=== PATIENT | female | born 1960 | race Caucasian/White ===

== ENCOUNTER 2019-09-18 16:03 | Inpatient (IN) | payer MEDICAID ==
[~2019-09-18] VITALS: Ht 144.8 cm; Wt 38.1 kg
--- NOTE | 2019-09-18 16:14 | NUR ---
BIB RA [address] "Acting bizzarre/Restless/altered" BS-145. to ER bed 8, hooked to monitor, placed additional padding at bedrails for safety. AAO x 2, Patient noted to have erratic spontaneous movement and patient states this is the first time it happened. kept safe and comfortable. Dr Guallpa at bedside
--- NOTE | 2019-09-18 16:36 | NUR ---
NOT ABLE TO BRING PATIENT TO CT SCAN BEC OF SPONTANEOUS MOVEMENT, MD AWARE
[2019-09-18 16:39] LABS: BASOPHILS % (AUTO) 0.3 % (0.0-2.0); EOSINOPHILS % (AUTO) 0.1 % (0.0-6.0); HEMATOCRIT 38 % (33-45); HEMOGLOBIN 12.4 g/dL (11.5-14.8); LYMPHOCYTES # (AUTO) 1.1 /CMM (0.8-4.8); LYMPHOCYTES % (AUTO) 14.3 % (20.0-44.0); MEAN CORPUSCULAR HGB CONC 33 g/dl (31.0-36.0); MEAN CORPUSCULAR VOLUME 91 fL (82-100); MONOCYTES # (AUTO) 0.6 /CMM (0.1-1.30); MONOCYTES % (AUTO) 7.1 % (2.0-12.0); NEUTROPHILS # (AUTO) 6.1 /CMM (1.8-8.9); NEUTROPHILS % (AUTO) 78.2 % (43.0-81.0); PLATELET COUNT (AUTO) 441 /CMM (150-450); RED BLOOD CELL COUNT(AUTO) 4.14 MIL/uL (4.0-5.2); WHITE BLOOD COUNT (AUTO) 7.8 K/uL (4.3-11.0)
[2019-09-18 16:47] LABS: CARBON DIOXIDE 26 mmol/L (21-32); CHLORIDE 101 mmol/L (98-107); CREATININE 1.2 mg/dL (0.6-1.3); GLUCOSE 134 mg/dL (74-106); POTASSIUM 3.2 mmol/L (3.5-5.1); SODIUM SERUM 140 mmol/L (136-145); UREA NITROGEN, BLOOD 34 mg/dL (7-18)
[2019-09-18 16:54] LABS: ALANINE AMINOTRANSFERASE 14 U/L (12-78); ALBUMIN 4.3 g/dL (3.4-5.0); ALKALINE PHOSPHATASE 76 U/L (46-116); ASPARTATE AMINOTRANSFERASE 16 U/L (15-37); BILIRUBIN,DIRECT 0.2 mg/dL (0.0-0.2); BILIRUBIN,TOTAL 0.8 mg/dL (0.2-1.0); TOTAL PROTEIN, SERUM 8.2 g/dL (6.4-8.2)
[2019-09-18 16:55] LABS: ACETAMINOPHEN < 2 ug/ml (10-30); SALICYLATE 0.2 mg/dL (2.8-20.0)
[2019-09-18 17:12] LABS: SERUM AMMONIA 8 umol/L (11-32)
--- NOTE | 2019-09-18 17:25 | NUR ---
urine sample collected via straight catheter, urine sample sent to lab
[2019-09-18 17:31] LABS: APPEARANCE,URINE Clear (CLEAR); BILIRUBIN,URINE SMALL (NEGATIVE); BLOOD, URINE Moderate Ery/uL (NEGATIVE); COLOR,URINE Yellow (YELLOW); KETONES,URINE Negative (NEGATIVE); LEUKOCYTE ESTERASE ,URINE Negative (NEGATIVE); NITRITE, URINE Negative (NEGATIVE); PH,URINE 5.5 (5.0-8.0); PROTEIN,URINE 30 mg/dl (NEGATIVE); UGLUCOSE Negative (NEGATIVE); UROBILINOGEN,URINE 0.2 EU/dL (0.2)
[2019-09-18 17:40] LABS: THYROID STIMULATING HORMONE 1.821 uIU/mL (0.358-3.74)
[2019-09-18 17:46] LABS: BACTERIA,URINE Rare /HPF (None Seen); SQUAMOUS EPITHELIAL CELL,UR Few /HPF (None Seen); WBC,URINE NONE SEEN /HPF (0-3)
--- NOTE | 2019-09-18 17:46 | NUR ---
FAMILY/RELATIVE: BISI: [phone] ANTHONY (COUSIN): [phone]
--- NOTE | 2019-09-18 18:18 | NUR ---
TRINITY LEMUS SPOKE TO COUSIN ANTHONY (COUSIN): [phone], PER TRINITY LEMUS, COUSIN STATES "SHE HAS SPECIFIC CONDITION THAT CAUSES HER TO BE LIKE THAT", MADE MD MCPHERSON
--- NOTE | 2019-09-18 18:21 | NUR ---
FAMILY INFORMATION SONDRAGAN
[2019-09-18] MEDS ORDERED: MORPHINE SULFATE INJ 2 MG/ML DISP.SYRIN ONE (18:22)
[2019-09-18] MEDS ORDERED: ASPIRIN 300 MG/SUPP.RECT RC ONE ×2 (18:23→18:30)
[2019-09-18] MEDS ORDERED: MORPHINE SULFATE INJ 2 MG/ML DISP.SYRIN IV ONE (18:30)
--- NOTE | 2019-09-18 18:32 | NUR ---
ASSISTANT NURSE MANAGER AT BEDSIDE FOR 2ND EKG
--- NOTE | 2019-09-18 18:49 | NUR ---
TRIED TO CONTACT NAYELY PINZON, NO ANSWER.
--- NOTE | 2019-09-18 19:25 | NUR ---
MANTEL CRAFTSMAN AT BEDSIDE FOR BLOOD DRAW
--- NOTE | 2019-09-18 19:26 | NUR ---
REPORT GIVEN TO CAMPBELL JON FOR LISANDRA
[2019-09-18 20:01] LABS: ALCOHOL, BLOOD < 3 mg/dL (0-0)
--- NOTE | 2019-09-18 20:06 | NUR ---
MD NOTIFIED THAT CT AND XRAY ARE UNABLE TO BE OBTAINED FROM PATIENT DUE TO PATIENT'S CONSTANT MOVEMENTS.
--- NOTE | 2019-09-18 20:41 | NUR ---
COVID RESULT: NEGATIVE. MD AWARE
[2019-09-18] MEDS ORDERED: LORAZEPAM INJ 2 MG/ML VIAL IV ONE (21:00)
--- NOTE | 2019-09-18 21:20 | NUR ---
REPORT GIVEN TO CHUY JON FOR LISANDRA.
--- NOTE | 2019-09-18 21:29 | NUR ---
PATIENT TAKEN TO ASSIGNED ROOM.
[2019-09-18] MEDS ORDERED: MORPHINE SULFATE INJ 2 MG/ML DISP.SYRIN IV PRN (21:30)
[2019-09-18] MEDS ORDERED: ACETAMINOPHEN 325 MG TABLET PO PRN (21:30)
[2019-09-18] MEDS ORDERED: HYDROCODONE/APAP 5/325MG 1 EACH TABLET PO PRN (21:30)
[2019-09-18] MEDS ORDERED: MAGNESIUM HYDROXIDE 30 ML UDC PO PRN (21:30)
[2019-09-18] MEDS ORDERED: Z GUARD REMEDY 2 OZ OINT TP PRN (21:30)
[2019-09-18] MEDS ORDERED: ZOLPIDEM TARTRATE 5 MG TABLET PO PRN (21:30)
[2019-09-18] MEDS ORDERED: MAG HYDROX/AL HYDROX/SIMETH 30 ML UDC PO PRN (21:30)
[2019-09-18] MEDS ORDERED: ONDANSETRON HCL/PF 4 MG/2 ML VIAL IVP PRN (21:30)
[2019-09-18 21:40] VITALS: BP 119/69
[2019-09-18 21:45] VITALS: BP 119/69
--- NOTE | 2019-09-18 22:00 | NUR ---
MS RN RECEIVE PT VIA GURCADEN FROM [employer] AT 2125 PT A/O X 1-2 ABLE TO MAKE NEEDS KNOWN TO OTHERS. VS STABLE, TOLERATING ROOM AIR, HEAD TO TOE ASSESSMENT IS DONE SKIN IS INTACT. UNABLE TO OBTAIN PAST MEDICAL HISTORY BECAUSE OF PT'S MENTAL CONDITION. KEPT CLEAN, DRY AND COMFORTABLE. SAFETY MEASURES IN PLACE. WILL CONT TO MONITOR, Addendum: 09/19/19 at 0004 by CHUY COMBS RN NOTED SPONTANEOUS MOVEMENT WHEN I TALK TO THE PT. ACCORDING TO UNA RODNEY SPOKE TO ANTHONY THEY SHE HAS SPECIFIC CONDITION THAT CAUSES HER TO BE LIKE THAT."
--- NOTE | 2019-09-18 22:30 | NUR ---
PATIENT ABLE TO UNDERSTAND LITTLE ANGOLAN AND ABLE TO PERFORM SPECIFIC DIRECTED MOVEMENTS LIKE TURN LYING TO THE SIDE OF THE BED AND TO STAY CALM WHEN CHANGING HER WHILE HOLDING HER HAND.
[2019-09-18] MEDS ORDERED: IV PREMIX 0.45% NS + KCL 1,000 ML IV ONE (22:54)
--- NOTE | 2019-09-18 23:55 | NUR ---
CALLED MULTIPLE TIMES FAMILY MEMBERS OF THE PT TO OBTAIN DATA ALL FAMILY MEMBER'S NOT ANSWERING PHONE
[2019-09-19] VITALS: BP 120/70
--- NOTE | 2019-09-19 00:05 | NUR ---
PT CALM AND SLEEPING AT THIS TIME NO ERRATIC MOVEMENT NOTED.
--- NOTE | 2019-09-19 03:23 | NUR ---
MS JON Unknown drug allergy unable to obtain data will endorse charge nurse informed
[2019-09-19 04:00] VITALS: BP 98/62
--- NOTE | 2019-09-19 04:15 | NUR ---
READING COACH PAGED HOSPITALIST CHANGED DIET TO MECHANICAL SOFT DIET FROM REGULAR AND SWALLOW EVALUATION. RELAYED HOSPITALIST PT STARTED TO MOVE UNCONTROLLABLY WHEN YOU TALK TO THE PT. PT NOW ASLEEP AND NO UNCONTROLLED MOVEMENTS AT THIS TIME
[2019-09-19 04:54] LABS: BASOPHILS % (AUTO) 0.3 % (0.0-2.0); EOSINOPHILS % (AUTO) 0.3 % (0.0-6.0); HEMATOCRIT 34 % (33-45); HEMOGLOBIN 11.2 g/dL (11.5-14.8); LYMPHOCYTES # (AUTO) 1.2 /CMM (0.8-4.8); LYMPHOCYTES % (AUTO) 18.3 % (20.0-44.0); MEAN CORPUSCULAR HGB CONC 33 g/dl (31.0-36.0); MEAN CORPUSCULAR VOLUME 90 fL (82-100); MONOCYTES # (AUTO) 0.5 /CMM (0.1-1.30); MONOCYTES % (AUTO) 7.9 % (2.0-12.0); NEUTROPHILS # (AUTO) 4.8 /CMM (1.8-8.9); NEUTROPHILS % (AUTO) 73.2 % (43.0-81.0); PLATELET COUNT (AUTO) 368 /CMM (150-450); RED BLOOD CELL COUNT(AUTO) 3.75 MIL/uL (4.0-5.2); WHITE BLOOD COUNT (AUTO) 6.6 K/uL (4.3-11.0)
[2019-09-19 05:40] LABS: ALBUMIN 3.8 g/dL (3.4-5.0); BILIRUBIN,TOTAL 0.9 mg/dL (0.2-1.0); CALCIUM, SERUM 8.9 mg/dL (8.5-10.1); CREATININE 0.7 mg/dL (0.6-1.3); MAGNESIUM 2.4 mg/dL (1.8-2.4); PHOSPHORUS 4.9 mg/dL (2.5-4.9); POTASSIUM 3.9 mmol/L (3.5-5.1); TOTAL PROTEIN, SERUM 7.5 g/dL (6.4-8.2)
[2019-09-19 05:48] LABS: THYROID STIMULATING HORMONE 2.624 uIU/mL (0.358-3.74)
--- NOTE | 2019-09-19 06:14 | NUR ---
MS RN PT SLEPT WELL, MONITORED ACCORDINGLY, PADDED SIDE RAILS FOR PROTECTION TOLERATING ROOM AIR. ALL NEEDS ATTENDED AND ANTICIPATED, KEPT CLEAN, DRY AND COMFORTABLE AT ALL TIMES. PT CAN FOLLOW COMMANDS, ABLE TO RE DIRECT. MORE CALMER AT THIS TIME. ABLE TO DRINK WATER WITH STRAW AND ATE APPLE SAUCE WITHOUT DIFFICULTY ASPIRATION PRECAUTION IMPLEMENTED FOR ST EVAL PER PT"NO DOLLOR" AT THIS TIME. ON CARDIAC MONITORING SB 55'S IN TELE MONITOR. NURSING CARE RENDERED.SAFETY MEASURES IN PLACE. WILL ENDORSE TO NEXT SHIFT.
--- NOTE | 2019-09-19 06:33 | NUR ---
MS JON DVT PUMPS NOT AVAILABLE PAGED CENTRAL SUPPLY LEFT A MESSAGE
--- NOTE | 2019-09-19 07:00 | NUR ---
MS RN CALLED MULTIPLE TIMES SON JEROMY AND KELSEYTATE'S NUMBER ANTHONY NO ANSWER TO OBTAIN DATA WILL ENDORSE
--- NOTE | 2019-09-19 07:20 | NUR ---
WIPER BLENDER NOTES RECEIVED PT IN BED, AWAKE, A/O X2. PT TOLERATING RA, WITH NO ACUTE RESPIRATORY DISTRESS NOTED. PT DENIES ANY PAIN AT THIS TIME. ON TELEMONITORING SR 66. PT DENIES ANY CONCERNS OR QUESTIONS WELL. IVF 1/2 NS WITH 20MEQS KCL AT 80ML/HR TO RAC G18, INTACT AND OPERATIONAL. PT KEPT COMFORTABLE. CALL LIGHT KEPT WITHIN REACH. PT'S BED IN LOWEST, LOCKED POSITION WITH SR X3. WILL CONTINUE PLAN OF CARE.
[2019-09-19 08:33] VITALS: BP 99/49
--- NOTE | 2019-09-19 08:39 | NUR ---
NURSE WILL MEDICATE PT. BEFORE EXAM @ 4242 DF
[2019-09-19] MEDS: ASPIRIN EC 81 MG TABLET.DR PO SCH (09:02)
[2019-09-19] MEDS: ENOXAPARIN SODIUM 40 MG/0.4 ML DISP.SYRIN SQ SCH (09:03)
[2019-09-19] MEDS: LORAZEPAM INJ 2 MG/ML VIAL IV PRN (09:04)
--- NOTE | 2019-09-19 09:20 | NUR ---
AIR BAG STRIPPER NOTES PT GIVEN ATIVAN IN PREPARATION FOR CT AND CXR TO KEEP PT CALM. VS STABLE AND RECORDED.WILL CONTINUE TO MONITOR.
--- NOTE | 2019-09-19 09:30 | NUR ---
MS JON NOTES PT WHEELED DOWNSTAIRS FOR CT AND CXR. WILL CONTINUE TO MONITOR. Addendum: 09/19/19 at 0935 by PRESTON PETTIT RN ADELA LONG* NOT
--- NOTE | 2019-09-19 09:39 | NUR ---
attempted. pt can not hold still @2267 yw
--- NOTE | 2019-09-19 09:39 | NUR ---
PREPARATION PLANT SUPERVISOR NOTES PT CAME BACK FROM RADIOLOGY, UNABLE TO TEST PT DUE TO INVOLUNTARY MOVEMENTS. WILL NOTIFY HOSPITALIST/KR AND DT. WILL CONTINUE TO MONITOR.
--- NOTE | 2019-09-19 11:54 | NUR ---
Technical Support Engineer met with this patient. Patient was able to mumble a few demographics. Patient was able to understand what this SW was asking when it was done in Indonesian. This SW was able to speak to Kirstin the patient's niece in Indonesian. Kirstin was able to confirm that the son Thierno is the best person to reach. This SW left a voicemail on Thierno' voicemail. Kirstin pt's niece stated that this patient does have some type of mental illness but has never been diagnosed or received treatment. ferny Fulton's niece also mentioned that one of her [id number]'s Jacinto Dinh was at [facility] last night 09/17 trying to receive information on the patient. He would be the best person to help transport the pt home when she is medically cleared for discharge. This SW would recommend a psych consult. SW remains available for all needs.
--- NOTE | 2019-09-19 14:14 | NUR ---
Investigative Reporter received a phone call from the Pt's taoist friend Aga . Aga only speaks Pashto. She stated that she is a friend of the pt through the taoist. Aga's job is caregiving which is why she offered her services to the pt. Aga is the one who bathes the pt. Aga reported that the pt does runaway from her on occasion but always comes back. Aga also reports "the home is unstable and I had to purchase a new bed for her because there were bed bugs". Aga provided the phone to Jacinto Dinh one of the pt's gely's . LOI to follow up with Jacinto. LOI will report the home to APS regarding the health and safety of the patient. SW to remain available for all needs.
--- NOTE | 2019-09-19 14:28 | NUR ---
Print Washer was able to follow up with Jacinto Dinh regarding the patient. Jacinto was receptive to speaking with this SW. Jacinto stated in Uzbek that he was at [facility] last night 09/17 to find out more and to the see the patient. Jacinto understood that due to COVID-19 he was not able to see her. When SW clarified relationship to patient he said that he is one of her niece's . Jacinto reported that he is the one who does most of the errands for her and drives her around. When SW asked Jacinto about pt's medical history he stated that this patient has Parkinson's Disease. Jacinto also stated that the patient is receptive but not clear in her responses. Jacinto shared that the patient's condition worsened over the last few years because the pt fell into a deep depression. Depression was triggered by the of the patient's mother (8-9 years ago), followed by the of the patient's father (5-6 years ago), and the abandonment of her . Jacinto stated that he would like to be called when the patient is medically cleared for discharge . SW to remain available for all needs. Addendum: 09/19/19 at 1437 by KRYSTAL MONSIVAIS Jacinto also stated that he has tried to reach patient's son Thierno, but has been unsuccessful.
--- NOTE | 2019-09-19 15:19 | NUR ---
MS JON NOTES INFORMED HOSPITALIST/KR REGARDING UNABLE TO DO PROCEDURES, CT HEAD AND CXR DUE TO INVOLUNTARY MOVEMENT'S F PT. AWARE AND NO ORDERS NOTED. WILL CONTINUE TO MONITOR. Addendum: 09/19/19 at 1521 by PRESTON PETTIT RN ADELA JON NOTES* NOT
--- NOTE | 2019-09-19 15:26 | NUR ---
Millinery Worker reported neglect to APS for health and safety concerns of the patient due to reports of an "unstable home and bed bugs". APS Confirmation #[id number]. SW will also leave in-home support application for the patient to receive at discharge. Jacinto Dinh is the person who would like to be notified when the patient is medically cleared. Mr. Dinh is the patient's niece's . LOI tried contacting the son, Thierno but has been unsuccessful. SW to remain available for all needs.
[2019-09-19 16:06] VITALS: BP 97/58
--- NOTE | 2019-09-19 18:57 | NUR ---
ASSOCIATE BUYER NOTES PT REMAINS IN BED, AWAKE, A/O X2. PT TOLERATING RA, WITH NO ACUTE RESPIRATORY DISTRESS NOTED. PT DENIES ANY PAIN AT THIS TIME. ON TELEMONITORING SR 69. PIV TO RAC G18, INTACT AND OPERATIONAL. ALL NEEDS AND CARE ATTENDED. PT KEPT COMFORTABLE. CALL LIGHT KEPT WITHIN REACH. PT'S BED IN LOWEST, LOCKED POSITION WITH SR X3. WILL ENDORSE TO INCOMING NIGHT NURSE FOR LISANDRA.
--- NOTE | 2019-09-19 19:05 | NUR ---
DIESEL POWERPLANT SUPERVISOR NOTES PT IN BED RESTING. PT A/O X2 FAROESE SPEAKING. RESPIRATIONS EVEN AND UNLABORED WITH NO S/S OF ACUTE DISTRESS OR SOB NOTED. NO COMPLAINTS OF PAIN AT THIS TIME. PIV TO RAC G18. SAFETY MEASURES IN PLACE WITH BED IN LOWEST LOCKED POSITION WITH SIDE RAILS UP X2. CALL LIGHT WITHIN REACH. WILL CONTINUE TO MONITOR.
[2019-09-19 20:00] VITALS: BP 104/50
[2019-09-20] VITALS: BP 114/71
[2019-09-20 04:00] VITALS: BP 116/58
--- NOTE | 2019-09-20 07:02 | NUR ---
METAL SHEET ROLLER OPERATOR NOTES PT IN BED RESTING. PT A/O X2 KYRGYZ SPEAKING. RESPIRATIONS EVEN AND UNLABORED WITH NO S/S OF ACUTE DISTRESS OR SOB NOTED THROUGHOUT SHIFT. NO COMPLAINTS OF PAIN AT THIS TIME. PIV TO RAC G18. PT KEPT CLEAN, DRY, AND COMFORTABLE. SAFETY MEASURES IN PLACE WITH BED IN LOWEST LOCKED POSITION WITH SIDE RAILS UP X2. CALL LIGHT WITHIN REACH. WILL ENDORSE TO ONCOMING NURSE FOR LISANDRA.
--- NOTE | 2019-09-20 07:25 | NUR ---
QUALITY CONTROL CHEMIST NOTES RECEIVED PT IN BED, AWAKE, A/O X2. PAPUA [place] SPEAKING BUT CAN UNDERSTAND SIMPLE LUX[place]BOURGISH. PT TOLERATING RA, WITH NO ACUTE RESPIRATORY DISTRESS NOTED. PT DENIES ANY PAIN AT THIS TIME. ON TELEMONITORING SR 77. PT DENIES ANY CONCERNS OR QUESTIONS WELL. PIV LEFT HAND G24SL , INTACT AND OPERATIONAL. PT KEPT COMFORTABLE. CALL LIGHT KEPT WITHIN REACH. PT'S BED IN LOWEST, LOCKED POSITION WITH SR X3. WILL CONTINUE PLAN OF CARE.
[2019-09-20] MEDS: ASPIRIN EC 81 MG TABLET.DR PO SCH (09:38)
[2019-09-20] MEDS: ENOXAPARIN SODIUM 40 MG/0.4 ML DISP.SYRIN SQ SCH (09:38)
--- NOTE | 2019-09-20 14:22 | NUR ---
MICROSOFT INFRASTRUCTURE CONSULTANT NOTES VERIFIED WITH GPS, SPOKE TO CYN/CHARGE NURSE REGARDING PENDING PSYCH CONSULT WITH DR. DIA. PER CYN/RN MD HASN'T COME YET BUT VERIFIED WITH EXISTING CONSULT.
[2019-09-20 16:00] VITALS: BP 138/79
[2019-09-20] MEDS: LORAZEPAM INJ 2 MG/ML VIAL IV PRN (16:05)
--- NOTE | 2019-09-20 16:07 | NUR ---
MS RN NOTES CALLED RADIOLOGY. PT JUST HAD ATIVAN 1MG, IN PREP FOR CT BRAIN. WILL CONTINUE TO MONITOR.
--- NOTE | 2019-09-20 16:34 | NUR ---
MS RN NOTES PT JUST CAME BACK FROM CT. SPOKE TO INOCENCIO AND PT STILL UNABLE TO STAY STILL. WILL NOTIFY HOSPITALIST/KR.
--- NOTE | 2019-09-20 16:37 | NUR ---
Second attempt trying to perform CT scan unsuccessful. Pt is confused and erratically moves too much for scan under patient restraints. RN May is aware.
--- NOTE | 2019-09-20 19:50 | NUR ---
MS RN NOTES PT REMAINS IN BED, AWAKE, A/O X2. KIS[place]HILI SPEAKING BUT CAN UNDERSTAND SIMPLE VATICAN CITIZEN. PT TOLERATING RA, WITH NO ACUTE RESPIRATORY DISTRESS NOTED. PT DENIES ANY PAIN AT THIS TIME. PIV LEFT HAND G24SL , FLUSHED WITH NS, INTACT AND OPERATIONAL. ALL NEEDS AND CARE ATTENDED. PT KEPT COMFORTABLE. CALL LIGHT KEPT WITHIN REACH. PT'S BED IN LOWEST, LOCKED POSITION WITH SR X3. ENDORSED TO NIGHT NURSE FOR LISANDRA.
--- NOTE | 2019-09-20 19:58 | NUR ---
MS RN NOTES RECEIVED PATIENT AWAKE, A/O X2. KOSOVAN SPEAKING BUT CAN UNDERSTAND SOME SWEDISH.TOLERATING RA, NO SIGNS OF ACUTE RESPIRATORY DISTRESS NOTED, WITH NO ACUTE CARDIAC DISTRESS NOTED. PT DENIES ANY PAIN NO FACIAL GRIMACING AT THIS TIME. PIV LEFT HAND G24SL , FLUSHED WITH NS, INTACT AND OPERATIONAL. ALL NEEDS AND CARE ATTENDED. PT KEPT COMFORTABLE. SAFETY MEASURES INPLACE. CALL LIGHT KEPT WITHIN REACH. PT'S BED IN LOWEST, LOCKED POSITION WITH SR X3. ALL NEEDS ANTICIPATED. WILL CONTINUE TO MONITOR ACCORDINGLY.
[2019-09-20 20:00] VITALS: BP 104/50
--- NOTE | 2019-09-20 23:13 | NUR ---
RN NOTES REPORT GIVEN TO DANAY SEWELL FOR CONTINUITY OF CARE.
--- NOTE | 2019-09-20 23:17 | NUR ---
MS RN NOTES RECEIVED PATIENT AWAKE IN BED. A/OX1-2. ON RA. NO S/S OF ACUTE RESPIRATORY DISTRESS NOTED; BREATHING IS EVEN AND UNLABORED. NO C/O PAIN AT THIS TIME. INVOLUNTARY MUSCLE MOVEMENTS PRESENT. SAFETY MEASURES IN PLACE AND PATIENT'S NEEDS MET. WILL CONTINUE TO MONITOR.
--- NOTE | 2019-09-21 06:38 | NUR ---
MS RN CLOSING NOTES PATIENT SLEEPING IN BED. A/OX1-2. ON RA. NO S/S OF ACUTE RESPIRATORY DISTRESS, BREATHING IS EVEN AND UNLABORED. INVOLUNTARY MUSCLE MOVEMENTS STILL REMAIN PRESENT. IV PRESENT ON LEFT HAND, SIZE 22, INTACT & PATENT HEP LOCKED. SAFETY MEASURES IN PLACE AND PATIENT'S NEEDS MET. BED LOCKED, ALARM ON, SIDE RAILS X3 AND PADDED, CALL LIGHT WITHIN REACH. WILL ENDORSE TO DAY SHIFT RN PLAN OF CARE.
--- NOTE | 2019-09-21 07:25 | NUR ---
MS RN NOTES RECEIVED PT IN BED, AWAKE, A/O X2. ST LUCIAN SPEAKING BUT CAN UNDERSTAND SIMPLE MARTINIQUAIS. PT TOLERATING RA, WITH NO ACUTE RESPIRATORY DISTRESS NOTED. PT DENIES ANY PAIN AT THIS TIME. PT DENIES ANY CONCERNS OR QUESTIONS WELL. PIV LEFT HAND G24SL , INTACT AND OPERATIONAL. PT KEPT COMFORTABLE. CALL LIGHT KEPT WITHIN REACH. PT'S BED IN LOWEST, LOCKED POSITION WITH SR X3. WILL CONTINUE PLAN OF CARE.
[2019-09-21 08:00] VITALS: BP 94/57
[2019-09-21] MEDS: ASPIRIN EC 81 MG TABLET.DR PO SCH (08:53)
[2019-09-21] MEDS: ENOXAPARIN SODIUM 40 MG/0.4 ML DISP.SYRIN SQ SCH (08:54)
--- NOTE | 2019-09-21 10:30 | NUR ---
MS RN NOTES VERIFIED WITH VIC FROM GPS REGARDING PENDING PSYCH CONSULT WITH DR. DIA. WILL CONTINUE TO MONITOR.
[2019-09-21] MEDS: CARBIDOPA/LEVODOPA 25/100 MG 1 UDTAB PO SCH ×2 (13:36→16:23)
--- NOTE | 2019-09-21 19:16 | NUR ---
MS RN NOTES PT REMAINS IN BED, AWAKE, A/O X2. CROATIAN SPEAKING BUT CAN UNDERSTAND SIMPLE MAURITIAN. PT TOLERATING RA, WITH NO ACUTE RESPIRATORY DISTRESS NOTED. PT DENIES ANY PAIN AT THIS TIME. PIV LEFT HAND G24SL , FLUSHED WITH NS, INTACT AND OPERATIONAL. ALL NEEDS AND CARE ATTENDED. PT KEPT COMFORTABLE. CALL LIGHT KEPT WITHIN REACH. PT'S BED IN LOWEST, LOCKED POSITION WITH SR X3. WILL ENDORSE TO INCOMING NIGHT NURSE FOR LISANDRA.
--- NOTE | 2019-09-21 19:50 | NUR ---
MS RN NOTES RECEIVED PATIENT IN BED, AWAKE, A/O X2. GREENLANDIC SPEAKING BUT CAN UNDERSTAND SIMPLE LAO. PATIENT IS TOLERATING ROOM AIR, NO ACUTE SIGNS OF RESPIRATORY DISTRESS NOTED. PATIENT DENIES ANY PAIN AT THIS TIME. NO INVOLUNTARY MOVEMENTS NOTED UPON ROUNDS, PATIENT IS RESTING COMFORTABLY IN BED. PIV LEFT HAND G24SL , INTACT AND PATENT.KEPT COMFORTABLE. SAFETY MEASURES IN PLACE, ASPIRATION PRECAUTION EMPHASIZED. CALL LIGHT KEPT WITHIN EASY REACH. BED IN LOWEST, LOCKED POSITION WITH SR X3. ALL NEEDS ANTICIPATED. WILL CONTINUE TO MONITOR ACCORDINGLY.
[2019-09-21 20:00] VITALS: BP 106/54
--- NOTE | 2019-09-21 22:30 | NUR ---
RN NOTES SEEN BY DR DIA. ASSESSED AND EVALUATED, NOTED WITH INVOLUNTARY MUSCLE MOVEMENT. NO AGGRESSIVE BEHAVIOUR NOTED, BUT WIT CONSTANT INVOLUNTARY MUSCLE MOVEMENTS NOTED DURING CONVERSATION. CANADIAN SPEAKING STAFF MADDISON AT BEDSIDE TO TRANSLATE.
--- NOTE | 2019-09-21 22:52 | NUR ---
RN NOTES SEEN AND EVALUATED BY DR. DIA. WITH ORDER TO GIVE HALDOL 0.5 MG TABLET PO TID.
[2019-09-21] MEDS: HALOPERIDOL 1 MG TABLET PO SCH (23:10)
--- NOTE | 2019-09-22 06:27 | NUR ---
RN NOTES ALL NEEDS ATTENDED AND MET. ABLE TO REST AND SLEPT AT INTERVALS. SAFETY MEASURES IN PLACE, INVOLUNTARY MOVEMENTS NOTED THIS MORNING, ASPIRATION PRECAUTION EMPHASIZED, ALL NEEDS ANTICIPATED, NO SIGNS OF DISTRESS. WILL ENDORSE TO AM NURSE FOR CONTINUITY OF CARE.
--- NOTE | 2019-09-22 08:05 | NUR ---
m/s bike designer: md visit seen by dr. chavez at this time and made aware re: no iv with no new order. okay with no iv for now per md.
[2019-09-22] MEDS: CARBIDOPA/LEVODOPA 25/100 MG 1 UDTAB PO SCH (08:54)
[2019-09-22] MEDS: ASPIRIN EC 81 MG TABLET.DR PO SCH (08:54)
[2019-09-22] MEDS: HALOPERIDOL 1 MG TABLET PO SCH (08:54)
[2019-09-22] MEDS: ENOXAPARIN SODIUM 40 MG/0.4 ML DISP.SYRIN SQ SCH (08:57)
[2019-09-22] MEDS ORDERED: HALO1TAB5 PO (09:55)
[2019-09-22] MEDS ORDERED: ASPI-1420 PO (09:55)
--- NOTE | 2019-09-22 10:00 | NUR ---
m/s patent agent: notes received order to d'c home from dr. chavez. order acknowledged.
--- NOTE | 2019-09-22 11:30 | NUR ---
m/s manager agency: notes pedro (caregiver/cousin) notified and made aware re: d'c home today with tajik staff translating. also ask preferred pharmacy and provided. escript sent to pharmacy of choice. prescriptions explained to pedro and will lemon picker the prescriptions today as instructed. pt unable to sign discharge papers due to cognitive impairment.
--- NOTE | 2019-09-22 13:10 | NUR ---
m/s medical secretary: notes family downstairs per security. pt getting ready and pt stable for discharge. all valuables returned.
--- NOTE | 2019-09-22 13:20 | NUR ---
m/s freight engineer: discharge discharge home in stable condition accompanied by cousin/caregiver via private car. also instructed cousin/caregiver re: e script prescriptions forward to their pharmacy of choice.
== END 2019-09-22 13:20 | disposition home health service (06) | DRG 190 ==
LOC: ER 16:09 → TELE 21:01 → MED 09-20 09:03
PROVIDERS: ADMIT Nurse Practitioner Acute Care; ATTEND Internal Medicine
DX: I21.A1 Myocardial infarction type 2 (principal); E86.0 Dehydration; G93.41 Metabolic encephalopathy; E87.6 Hypokalemia; N17.0 Acute kidney failure with tubular necrosis; F29 Unspecified psychosis not due to a substance or known physiological condition; D68.69 Other thrombophilia; G24.9 Dystonia, unspecified; G20 Parkinson's disease; F32.9 Major depressive disorder, single episode, unspecified; F41.9 Anxiety disorder, unspecified; R40.2142 Coma scale, eyes open, spontaneous, at arrival to emergency department; R40.2242 Coma scale, best verbal response, confused conversation, at arrival to emergency department; R40.2362 Coma scale, best motor response, obeys commands, at arrival to emergency department; G25.5 Other chorea
CPT/HCPCS: 36415; 71045-TC; 80048-TC; 80053-TC; 80061-TC; 80076-TC; 80305; 81000-TC; 82140-TC; 83735-TC; 84100-TC; 84443-TC; 84484-TC; 85025-TC; 85730-TC; 87081-TC; 92526; 92611-TC; 93307-TC; C9803-CS; G0378; G0480; J1650; J2060; J2270; J3480; J3490; J7030

== ENCOUNTER 2020-03-22 10:59 | Emergency (ER) | payer MEDICAID ==
[~2020-03-22] VITALS: Ht 144.8 cm; Wt 47.6 kg
[~2020-03-22 10:59] MED LIST: ASPI-1420 PO; HALO1TAB5 PO
--- NOTE | 2020-03-22 11:08 | NUR ---
PT BIBRA FROM AN ALLEY OUTSIDE AN APARTMENT COMPLEX. PER EMS REPORT, RESIDENT CALLED 911 FOR PATIENT NOTED TO BE ACTING BIZZARE. PT IS APPEARS TO BE ACTIVELY PSYCHOTIC AND WONT RESPOND VERBALLY TO ED STAFF. STABLE VITALS. AWAITING MD ANDERSON.
--- NOTE | 2020-03-22 11:11 | NUR ---
DR SANCHEZ AT BEDSIDE FOR EVAL. -
[2020-03-22] MEDS ORDERED: OLANZAPINE 10 MG VIAL IM ONE ×2 (11:15→11:30)
[2020-03-22] MEDS ORDERED: LORAZEPAM INJ 2 MG/ML VIAL ONE (11:15)
[2020-03-22] MEDS ORDERED: LORAZEPAM INJ 2 MG/ML VIAL IM ONE (11:30)
--- NOTE | 2020-03-22 11:45 | NUR ---
ASSOCIATE DIRECTOR QA AT BEDSIDE FOR BLOOD DRAW.
[2020-03-22 12:01] LABS: BASOPHILS % (AUTO) 0.5 % (0.0-2.0); EOSINOPHILS % (AUTO) 0.6 % (0.0-6.0); HEMATOCRIT 35 % (33-45); HEMOGLOBIN 11.3 g/dL (11.5-14.8); LYMPHOCYTES # (AUTO) 0.9 /CMM (0.8-4.8); LYMPHOCYTES % (AUTO) 15.8 % (20.0-44.0); MEAN CORPUSCULAR HGB CONC 33 g/dl (31.0-36.0); MEAN CORPUSCULAR VOLUME 87 fL (82-100); MONOCYTES # (AUTO) 0.3 /CMM (0.1-1.30); NEUTROPHILS # (AUTO) 4.4 /CMM (1.8-8.9); NEUTROPHILS % (AUTO) 77.1 % (43.0-81.0); PLATELET COUNT (AUTO) 382 /CMM (150-450); RED BLOOD CELL COUNT(AUTO) 3.95 MIL/uL (4.0-5.2); WHITE BLOOD COUNT (AUTO) 5.7 K/uL (4.3-11.0)
[2020-03-22 12:16] LABS: ALANINE AMINOTRANSFERASE 17 U/L (12-78); ALBUMIN 3.4 g/dL (3.4-5.0); ALCOHOL, BLOOD < 3 mg/dL (0-0); ALKALINE PHOSPHATASE 84 U/L (46-116); ASPARTATE AMINOTRANSFERASE 19 U/L (15-37); BILIRUBIN,DIRECT 0.1 mg/dL (0.0-0.2); BILIRUBIN,TOTAL 0.4 mg/dL (0.2-1.0); CALCIUM, SERUM 8.8 mg/dL (8.5-10.1); CARBON DIOXIDE 29 mmol/L (21-32); CHLORIDE 105 mmol/L (98-107); CREATININE 0.7 mg/dL (0.6-1.3); GLUCOSE 99 mg/dL (74-106); POTASSIUM 3.6 mmol/L (3.5-5.1); SODIUM SERUM 142 mmol/L (136-145); TOTAL PROTEIN, SERUM 7.3 g/dL (6.4-8.2); UREA NITROGEN, BLOOD 20 mg/dL (7-18)
[2020-03-22 12:22] LABS: ACETAMINOPHEN 0 ug/ml (10-30)
--- NOTE | 2020-03-22 14:36 | NUR ---
PT RESTING IN BED. AROUSABLE. ON MONITOR. WILL CONTINUE TO MONITOR.
--- NOTE | 2020-03-22 14:36 | NUR ---
Aletha manrique in ED - 03/23/20 at 0818 by YUKI PT RESTING IN BED. AROUSABLE. ON MONITOR. WILL CONTINUE TO TRANSFER.
[2020-03-22 15:30] LABS: BILIRUBIN,URINE NEGATIVE (NEGATIVE); COLOR,URINE YELLOW (YELLOW); LEUKOCYTE ESTERASE ,URINE SMALL (NEGATIVE); NITRITE, URINE NEGATIVE (NEGATIVE); PH,URINE 6.5 (5.0-8.0); PROTEIN,URINE NEGATIVE (NEGATIVE); UGLUCOSE NEGATIVE (NEGATIVE); UROBILINOGEN,URINE 0.2 EU/dL (0.2)
[2020-03-22 15:37] LABS: BACTERIA,URINE 2+ /HPF (None Seen)
--- NOTE | 2020-03-23 07:42 | NUR ---
ASSESSED PT ON BED AWAKE AND ALERT NOT IN RESPIRATORY DISTRESS, V/S STABLE, KEPT RESTED AND COMFORTABLE. WILL CONTINUE TO MONITOR.
--- NOTE | 2020-03-23 10:40 | NUR ---
SW AT BEDSIDE FOR EVAL.
--- NOTE | 2020-03-23 11:14 | NUR ---
LOI called Helminthologist, Nakia Osullivan [phone]. However, no answer & inbox is full. ED staff to continue making attempts to reach Nakia.
--- NOTE | 2020-03-23 11:30 | NUR ---
CALLED BHARAT GRIFFITH FULL. TEXTED
--- NOTE | 2020-03-23 12:01 | NUR ---
SS Consult: SS Consult requested for bizarre behavior. The pt. appears unkempt, and does not make appropriate eye contact. The pt. understands German, however, responding to SW in Serbian only. SW conducted remainder of interview in Serbian. The pt. appears gaunt, anxious with agitated movement of all 4 extremities & distressed affect. The pt. is alert & oriented x 2 with slurred speech. Pt. not oriented to time & situation. Patient stated she was outside her apartment & the police gave her a ride to the hospital. Patient able to provide her address. Per patient she lives alone at [[id number] [facility] [place] [address]]. SW explored pt.s support system & self-care Pt. stated she suffers from a medical condition that affects her nerves (unable to provide specifics). Per pt. she is disabled & not able to work (unable to provide how she pays for her apt.). Pt.stated she is unable to care for self (unable to feed & bath self). Pt. stated that is why I am so thin. Per pt. her father some years ago & her children reside in [facility]. SW assessed for mental health Hx. Patient stated, my took me to [place] & they did witchcraft on me. I hear voices. Pt. denies visual & somatic hallucinations. Pt. denies SI/HI. Pt. with fair insight & poor judgment. Pt. stated she does not take any psychotropic medication. Per lab report, the pt. did not test positive for any drugs or ETOH. Plan: Pt. to be seen by Legal Support Analyst, Nakia [phone] for psychiatric placement or other appropriate interventions. Pt. stated she lives alone at [[id number] [facility] [place] [address]]. SW will be available as needed. LOI discussed pt.s case with Dr. Silva.
--- NOTE | 2020-03-23 13:05 | NUR ---
BHARAT JON CRISIS MAINTENANCE SHOP TECHNICIAN AT BEDSIDE FOR EVAL.
[2020-03-23] MEDS ORDERED: BENZTROPINE MESYLATE (2MG/2ML) 2 MG/2 ML AMPUL ONE (13:22)
[2020-03-23] MEDS ORDERED: BENZTROPINE MESYLATE (2MG/2ML) 2 MG/2 ML AMPUL IM ONE (13:30)
[2020-03-23 13:35] VITALS: BP 110/54
--- NOTE | 2020-03-23 13:37 | NUR ---
Patient discharged to home in stable condition. Written and verbal after care instructions given. Patient verbalizes understanding of instruction. taxi voucher provided to patient.
== END 2020-03-23 13:37 | disposition home or self-care (01) ==
LOC: ER 11:02
DX: F29 Unspecified psychosis not due to a substance or known physiological condition (principal); G24.9 Dystonia, unspecified; Z79.82 Long term (current) use of aspirin; Z79.899 Other long term (current) drug therapy
CPT/HCPCS: 36415; 80048; 80076; 80299; 80307; 80320; 81001; 85025; 87086; 96372 ×2; 99285; J2060; J3490; G0480; J0515

== ENCOUNTER 2020-04-27 18:11 | Inpatient (IN) | payer MEDICAID ==
[~2020-04-27] VITALS: Ht 162.6 cm; Wt 43.1 kg
--- NOTE | 2020-04-27 18:40 | NUR ---
bibra99, from street, altered, bizarre behavior. Patient a/ox2, verbally responsive, but difficult to understand. Patient has involuntary movements from extremities. Needs attended.
--- NOTE | 2020-04-27 19:15 | NUR ---
PATIENT STS SHE'S UNABLE TO GIVE URINE AT THIS TIME. ENDORSED TO RICHELLE JON.
[2020-04-27] MEDS ORDERED: LORAZEPAM INJ 2 MG/ML VIAL IV ONE (19:30)
[2020-04-27 19:57] LABS: CALCIUM, SERUM 9.1 mg/dL (8.5-10.1); CARBON DIOXIDE 29 mmol/L (21-32); CHLORIDE 107 mmol/L (98-107); CREATININE 0.7 mg/dL (0.6-1.3); GLUCOSE 97 mg/dL (74-106); POTASSIUM 4.1 mmol/L (3.5-5.1); SODIUM SERUM 143 mmol/L (136-145); UREA NITROGEN, BLOOD 30 mg/dL (7-18)
[2020-04-27 20:01] LABS: ALANINE AMINOTRANSFERASE 18 U/L (12-78); ALBUMIN 3.6 g/dL (3.4-5.0); ALCOHOL, BLOOD < 3 mg/dL (0-0); ALKALINE PHOSPHATASE 108 U/L (46-116); ASPARTATE AMINOTRANSFERASE 18 U/L (15-37); BILIRUBIN,DIRECT 0.1 mg/dL (0.0-0.2); BILIRUBIN,TOTAL 0.2 mg/dL (0.2-1.0); TOTAL PROTEIN, SERUM 7.8 g/dL (6.4-8.2)
[2020-04-27 20:06] LABS: ACETAMINOPHEN < 2 ug/ml (10-30)
[2020-04-27] MEDS ORDERED: LORAZEPAM INJ 2 MG/ML VIAL ONE (20:09)
[2020-04-27 20:18] LABS: BASOPHILS % (AUTO) 0.4 % (0.0-2.0); EOSINOPHILS % (AUTO) 0.5 % (0.0-6.0); HEMATOCRIT 36 % (33-45); HEMOGLOBIN 11.7 g/dL (11.5-14.8); LYMPHOCYTES # (AUTO) 1.5 /CMM (0.8-4.8); LYMPHOCYTES % (AUTO) 18.5 % (20.0-44.0); MEAN CORPUSCULAR HGB CONC 33 g/dl (31.0-36.0); MEAN CORPUSCULAR VOLUME 88 fL (82-100); MONOCYTES # (AUTO) 0.5 /CMM (0.1-1.30); MONOCYTES % (AUTO) 6.6 % (2.0-12.0); PLATELET COUNT (AUTO) 391 /CMM (150-450); RED BLOOD CELL COUNT(AUTO) 4.03 MIL/uL (4.0-5.2); WHITE BLOOD COUNT (AUTO) 8.1 K/uL (4.3-11.0)
--- NOTE | 2020-04-27 20:25 | NUR ---
SENT URINE TO LAB
[2020-04-27 21:09] LABS: BILIRUBIN,URINE NEGATIVE (NEGATIVE); COLOR,URINE YELLOW (YELLOW); LEUKOCYTE ESTERASE ,URINE NEGATIVE (NEGATIVE); NITRITE, URINE NEGATIVE (NEGATIVE); PROTEIN,URINE NEGATIVE (NEGATIVE); UGLUCOSE NEGATIVE (NEGATIVE); UROBILINOGEN,URINE 0.2 EU/dL (0.2)
[2020-04-27 21:19] LABS: BACTERIA,URINE None seen /HPF (None Seen); SQUAMOUS EPITHELIAL CELL,UR Few /HPF (None Seen)
--- NOTE | 2020-04-27 22:18 | NUR ---
COVID SWAB SENT TO LAB
--- NOTE | 2020-04-27 22:22 | NUR ---
auth rec'd from insurance
[2020-04-27] MEDS ORDERED: IV NS 0.9% 1,000 ML BAG IV ONE (22:30)
--- NOTE | 2020-04-27 22:53 | NUR ---
LAB CALLED REGARDING NEGATIVE COVID RESULT.
--- NOTE | 2020-04-27 23:07 | NUR ---
TELE 102
--- NOTE | 2020-04-27 23:14 | NUR ---
SENT COVID SWAB TO LAB
[2020-04-27] MEDS ORDERED: ZOLPIDEM TARTRATE 5 MG TABLET PO PRN (23:30)
[2020-04-27] MEDS ORDERED: ACETAMINOPHEN 325 MG TABLET PO PRN (23:30)
[2020-04-27] MEDS ORDERED: MORPHINE SULFATE INJ 2 MG/ML DISP.SYRIN IV PRN (23:30)
--- NOTE | 2020-04-27 23:41 | NUR ---
GAVE REPORT TO DANAY JAMES FOR LISANDRA
[2020-04-27 23:55] VITALS: BP 102/52
--- NOTE | 2020-04-28 00:30 | NUR ---
RN NOTES ADMITTED PT TO TELE AT 04/27/20 2355 [facility]. PT ALERT AND ORIENTED X3. GREENLANDIC SPEAKING. NEEDS SENIOR PROJECT MANAGER ENGINEERING. PT WITH INVOLUNTARY MOVEMENTS OF EXTREMITIES. DENIES ANY PAIN. PT TOLERATES ROOM AIR. NO DISTRESS NOTED. HOOKED UP TO TELE MONITOR WITH SINUS RHYTHM WITH HR OF 59. IV ON RAC PATENT AND INTACT, NO SIGNS OF INFECTION NOTED. ORIENTED TO FACILITIES ROUTINE, CALL LIGHT USE. ALL SAFETY MEASURES IMPLEMENTED PER PROTOCOL. CALL LIGHT WITHIN REACH. BED LOCKED IN LOWEST POSITION. SIDE RAILS UP. WILL CONTINUE TO MONITOR.
[2020-04-28] MEDS: IV D5/0.45 NACL 1,000 ML IV PRN ×2 (00:43→16:30)
--- NOTE | 2020-04-28 01:00 | NUR ---
RN NOTES PT CAME IN TO UNIT WITH BELONGINGS OF PINK DRESS AND PAIR OF SHOES ONLY. PER ER BELONGINGS FORM, PT HAS EARRINGS, RINGS AND BRACELET PANTS AND SWEATERS. CALLED ER NURSE RICHELLE, PER RN THEY DON'T HAVE THOSE BELONGINGS.
[2020-04-28 04:00] VITALS: BP 112/51
[2020-04-28 06:04] LABS: BASOPHILS % (AUTO) 0.3 % (0.0-2.0); EOSINOPHILS % (AUTO) 1.2 % (0.0-6.0); HEMATOCRIT 33 % (33-45); HEMOGLOBIN 10.7 g/dL (11.5-14.8); LYMPHOCYTES # (AUTO) 1.3 /CMM (0.8-4.8); MEAN CORPUSCULAR HGB CONC 33 g/dl (31.0-36.0); MEAN CORPUSCULAR VOLUME 88 fL (82-100); MONOCYTES # (AUTO) 0.5 /CMM (0.1-1.30); MONOCYTES % (AUTO) 8.3 % (2.0-12.0); NEUTROPHILS # (AUTO) 4.1 /CMM (1.8-8.9); NEUTROPHILS % (AUTO) 68.2 % (43.0-81.0); PLATELET COUNT (AUTO) 320 /CMM (150-450)
[2020-04-28 06:56] LABS: CHOLESTEROL 136 mg/dL (<200); HDL CHOLESTEROL 48 mg/dL (40-60); LDL 82 mg/dL (0-99); THYROID STIMULATING HORMONE 1.996 uIU/mL (0.358-3.74); TRIGLYCERIDES 41 mg/dL (30-150)
--- NOTE | 2020-04-28 07:00 | NUR ---
RN NOTE NO SIGNIFICANT CHANGES NOTED, PT REMAIN IN BED. HAVE EPISODES OF SINUS BOBO WITH HR OF 47 WHILE SLEEPING. NO DISTRESS NOTED. CONTINUE ON IVF. NO SIGNS OF INFILTRATION NOTED. WILL ENDORSE TO NEXT SHIFT NURSE FOR LISANDRA.
[2020-04-28 07:05] LABS: ALANINE AMINOTRANSFERASE 13 U/L (12-78); ALKALINE PHOSPHATASE 75 U/L (46-116); ASPARTATE AMINOTRANSFERASE 18 U/L (15-37); BILIRUBIN,TOTAL 0.3 mg/dL (0.2-1.0); CALCIUM, SERUM 8.3 mg/dL (8.5-10.1); CARBON DIOXIDE 25 mmol/L (21-32); CHLORIDE 108 mmol/L (98-107); CREATININE 0.5 mg/dL (0.6-1.3); GLUCOSE 88 mg/dL (74-106); MAGNESIUM 2.4 mg/dL (1.8-2.4); PHOSPHORUS 3.8 mg/dL (2.5-4.9); POTASSIUM 3.2 mmol/L (3.5-5.1); SODIUM SERUM 141 mmol/L (136-145); TOTAL PROTEIN, SERUM 6.5 g/dL (6.4-8.2); UREA NITROGEN, BLOOD 19 mg/dL (7-18)
--- NOTE | 2020-04-28 07:30 | NUR ---
RN NOTES DUTCH SPEAKING PT IN BED A/Ox2, WITH DYSTONIA/UNCONTROLLED AND SPASTIC MOVEMENTS THROUGHOUT BODY. PT ON RA SPO2 100%, NO SIGNS OR SOB OR RESP DISTRESS. PT NSR ON TELE MONITOR. PT HAS RAC #20 INFUSING D5 1/2 NS @ 70ML/HR. ALL PT SAFETY PRECAUTION IN PLACE. WILL CONT TO MONITOR
[2020-04-28] MEDS: POTASSIUM CHLORIDE 20 MEQ TAB.PRT.SR PO SCH ×2 (10:56→13:48)
[2020-04-28] MEDS: HALOPERIDOL 1 MG TABLET PO SCH ×3 (10:56→18:23)
[2020-04-28] MEDS: MULTIVITAMINS,THERAGRAN 1 UDTAB TABLET PO SCH (10:56)
[2020-04-28] MEDS: ASPIRIN EC 81 MG TABLET.DR PO SCH (10:56)
[2020-04-28] MEDS: FAMOTIDINE/PF INJ 20 MG/2 ML VIAL IV SCH (10:56)
[2020-04-28] MEDS ORDERED: LORAZEPAM INJ 2 MG/ML VIAL IV PRN (13:30)
[2020-04-28] MEDS ORDERED: diphenhydrAMINE HCL 50 MG/ML VIAL IV PRN (13:30)
[2020-04-28] MEDS: LORAZEPAM INJ 2 MG/ML VIAL IV PRN (13:49)
--- NOTE | 2020-04-28 15:00 | NUR ---
RN NOTE DR. CARVER PERFORMED NEURO CONSULT WITH PT
--- NOTE | 2020-04-28 18:01 | NUR ---
RN NOTE SITTER ORDER FOR PT, TARDIVE DYSKINESIA AND TRYING TO GET OUT OF BED. FALL RISK. ORDER PLACED BY DARELL MARQUEZ NP
--- NOTE | 2020-04-28 18:18 | NUR ---
faxed to gps consult for dr. craig and informed charge nurse gps.
[2020-04-28] MEDS: DOCUSATE SODIUM 100 MG CAPSULE PO SCH (18:23)
--- NOTE | 2020-04-28 19:00 | NUR ---
RN CLOSING NOTE NO CHANGES TO PT DURING SHIFT. PT IS STABLE. ALL PT SAFETY PRECAUTION IN PLACE. WILL ENDORSE LISANDRA TO ONCOMING RN
--- NOTE | 2020-04-28 19:56 | NUR ---
RN NOTE RECEIVED PT IN BED A,A,O X3, PT HAS INVOLUNTARY MOVEMENTS OF ARMS, ON RA SATING ABOVE 95%, UNLABORED BREATHING ,ON TELE MONITOR SHOWING HR IN 90s. SITTER AT BED SIDE, SAFETY MEASURES IN PLACE.
[2020-04-28 20:00] VITALS: BP 103/55
[2020-04-29] VITALS: BP 117/87
[2020-04-29 04:00] VITALS: BP 100/60
[2020-04-29] MEDS: IV D5/0.45 NACL 1,000 ML IV PRN (05:34)
[2020-04-29 05:53] LABS: BASOPHILS % (AUTO) 0.7 % (0.0-2.0); HEMATOCRIT 37 % (33-45); HEMOGLOBIN 12.1 g/dL (11.5-14.8); LYMPHOCYTES # (AUTO) 1.8 /CMM (0.8-4.8); MEAN CORPUSCULAR HGB CONC 33 g/dl (31.0-36.0); MEAN CORPUSCULAR VOLUME 89 fL (82-100); MONOCYTES # (AUTO) 0.5 /CMM (0.1-1.30); MONOCYTES % (AUTO) 7.1 % (2.0-12.0); NEUTROPHILS # (AUTO) 4.7 /CMM (1.8-8.9); NEUTROPHILS % (AUTO) 66.2 % (43.0-81.0); PLATELET COUNT (AUTO) 350 /CMM (150-450); RED BLOOD CELL COUNT(AUTO) 4.14 MIL/uL (4.0-5.2); WHITE BLOOD COUNT (AUTO) 7.1 K/uL (4.3-11.0)
[2020-04-29 06:05] LABS: CALCIUM, SERUM 8.7 mg/dL (8.5-10.1); CREATININE 0.5 mg/dL (0.6-1.3); MAGNESIUM 2.2 mg/dL (1.8-2.4); POTASSIUM 4.2 mmol/L (3.5-5.1)
--- NOTE | 2020-04-29 07:36 | NUR ---
REPORT GIVEN TO ONCOMING SHIFT FOR LISANDRA.
--- NOTE | 2020-04-29 07:53 | NUR ---
RECEIVED PATIENT IN BED. NO ACUTE DISTRESS NOTED. PATIENT ALERT & ORIENTED X3. PATIENT ON ROOM AIR, SATURATING WELL AT >96%. PATIENT ON TV HOST, NSR NOTED. PATIENT R AC INTACT, PATENT. SITTER IN PLACE. PATIENT SAFETY MEASURES MAINTAINED. WILL CONTINUE TO MONITOR.
[2020-04-29 08:00] VITALS: BP 94/62
[2020-04-29] MEDS: DOCUSATE SODIUM 100 MG CAPSULE PO SCH ×2 (08:32→16:32)
[2020-04-29] MEDS: ASPIRIN EC 81 MG TABLET.DR PO SCH (08:32)
[2020-04-29] MEDS: HALOPERIDOL 1 MG TABLET PO SCH ×2 (08:32→12:26)
[2020-04-29] MEDS: FAMOTIDINE/PF INJ 20 MG/2 ML VIAL IV SCH (08:32)
[2020-04-29] MEDS: MULTIVITAMINS,THERAGRAN 1 UDTAB TABLET PO SCH (08:32)
--- NOTE | 2020-04-29 10:54 | NUR ---
PT NOT COOPERATIVE , DANAY VERDUGO WILL CALL IF CONDITION CHANGES AND PT ABLE TO HOLD STILL FOR EXAM. DAT
[2020-04-29 12:00] VITALS: BP 106/65
[2020-04-29] MEDS: OLANZAPINE 2.5 MG TABLET PO SCH (15:15)
[2020-04-29 16:00] VITALS: BP 116/63
--- NOTE | 2020-04-29 16:04 | NUR ---
"SS Consult: SS Consult requested for homelessness & possible APS. The pt. is a 59-year old woman BIB. The pt. is alert & oriented x 3. The pt. appears unkempt & makes appropriate eye contact. The pt. denies current SI/HI and denies current hallucinations. Pt. states she speaks Persian however, she prefers being interviewed in Kazakh. Pt. stated I was brought to the hospital by police. Patient stated she was outside her home because she comes outside when she feels there might be an earthquake. Pt. stated she lives at [[address] [facility] [address]] alone and stated she has no phone. Patient may be unable to care for self and states, I drink water from the faucet & neighbors bring me food Pt. stated she does not receive financial support (EBT, General Relief, SSI). Pt. stated she is unable to shower as she can slip. Patient expressed wanting to be discharge to home. Patient states I have been living there my entire life. Pt. states the greenhouse manager lets her live there rent free. Per pt. she has no family here. Patient stated her parents & her two daughters reside in [facility]. This pt. is known to SW from previous admission. Pt. has been evaluated by Crisis Team in the past. Archivist Political History in previous admission stated tardive dyskinesia and she reports that this started 7 years ago. She also states that she has Schizophrenia and used to hear voices per Crisis note. Plan: SW will follow up and make APS report. SW placed resources in discharge packet. Patient is agreeable to placement if needed. SW will follow up. Substance Abuse resources provided included: [facility] Substance Abuse Self-Helpline ([facility]) ; CRI -HELP [address] [facility]. [place] 916t01 ; [facility] [address] [facility] [address] ; [facility] [address] [facility] [address] ; [facility] [address] ; [facility] 49[address] [facility] [address] ; [facility] [address] [facility] [phone] ; [facility] Substance Abuse Helpline(SAS)-[facility] ; [facility] ; [facility] [place]; [facility] [place]; [facility] [place]; [facility] [place]; [facility]; [facility]; [facility]; [facility], [facility]. [facility]; Alcoholics Anonymous -SFV; Jp-Vtxf-Vchsyvs ; Marijuana Anonymous -SFV; Narcotics Anonymous www.na.org; Year-round shelters: [facility] [address] [place], [place] [phone] ; [place] [facility] [address] [place] [address]; [place] [facility] Cyz[address]ary[address] [facility] [address] Winter Shelters: Yuli Martinez Provider: Dan[facility] [place] Address: [address] [place], [address] # of Beds: 47 Population Served: [facility] 6 | [facility] Daya Li [place] Provider: Home at Last Address: [address] [place] [address], [address] # of Beds: 66 Population Served: [facility] [place] Provider: First to Serve Address: [id number] [place] [address], [address] # of Beds: 56 Population Served: [place]i [place] Provider: [facility] Address: [address] [facility], [address] # of Beds: 49 Population Served: [facility] 8 | [place] Provider: First to Serve Address: [address], [address] # of Beds: 37 Population Served: [facility] Hy[facility]: [facility]: [address] [place] ; [facility] [address] [facility] ; [facility] 69[address] [facility] . Food Resources: [place] [facility] at [facility]- [address] [facility]; Meet Each Need with Dignity ([facility]) [address] [facility]; [facility] 4340 [facility]; [facility] 8522 [facility]. Mental Health resources provided: [facility] [address] [place], [place] [address] ; [facility] [address] [facility] [address], [place], [place] [phone] ; [facility] [address], [place] [phone] ; [facility] [address] [place], [place] [address] Healthcare Clinics: [facility] [address] [facility], [address] [place]. [place] ; [facility] [address] [facility] [address] [place] [address]; [facility] [address] [facility]. [place] [phone] Counseling--Outpatient [facility] [address] [facility], [address] [place], [place] [phone] (Specializes in in-depth psychotherapy for emotional distress: anxiety, depression, interpersonal conflicts, life transitions, childhood abuse) [facility] [address] [place] [address] (Assist with solving problem marital difficulties, separation & divorce, aging parents, & grief, chronic & terminal illness) [facility] [address] [place] [address] (Deal with loss & grief, anxiety, marital difficulties) Homebound/Mental Health Services [address], [address] [place], [place] [address] (Provide in-home mental services to people who are incapable of leaving their homes) [facility] Elder[facility] Senior Service/Resource Center [address] [place], [place] [phone] [facility] [address] [place] [address] [address] [facility] Partial Hospitalization and Intensive Outpatient Program (Managed Care and [place] Only)[address] [address]. [facility] [phone] [facility] Partial Hospitalization and Outpatient [id number] [place], [place] [phone] [facility] Partial Hospitalization and Outpatient Rtldisd3355 [place] [address]enia. [place], [place] [phone] [facility] [id number] [place], [place] [phone] [facility] Partial Hospitalization and Outpatient [id number] Shira Dove [phone] "
--- NOTE | 2020-04-29 18:31 | NUR ---
PATIENT IN BED. NO ACUTE DISTRESS NOTED. PATIENT ALERT & ORIENTED X3. PATIENT ON ROOM AIR, SATURATING WELL AT >96%. PATIENT ON TELEPHONE OPERATOR RECEPTIONIST, NSR NOTED. PATIENT R AC INTACT, PATENT. SITTER IN PLACE. PATIENT SAFETY MEASURES MAINTAINED. WILL ENDORSE PLAN OF CARE TO ONCOMING SHIFT
--- NOTE | 2020-04-29 19:45 | NUR ---
RN NOTES RECEIVED PT IN BED ALERT AND ORIENTED X 3-4. NOTED WITH UNCONTROLLED AND SPASTIC MOVEMENTS THROUGHOUT BODY. PT ON RA SATURATING WELL AT 97%, NO SIGNS OF SOB OR RESP DISTRESS. PT NSR ON TELE MONITOR. PT RAC IV DISLODGED. REINSERTED NEW IV LINE ON FRA 22G. WITH GOOD BLOOD RETURN, IVF D51/2 NS RESTARTED, NO SIGNS OF INFILTRATION NOTED. SITTER AT BEDSIDE. ALL SAFETY MEASURES IMPLEMENTED PER PROTOCOL. BED LOCKED IN LOWEST POSITION. SIDE RAILS UP.
[2020-04-29 20:00] VITALS: BP 108/69
[2020-04-29] MEDS ORDERED: OLANZAPINE 10 MG TABLET PO SCH (21:00)
--- NOTE | 2020-04-29 22:30 | NUR ---
7396 DR MARCANO MADE AWARE THAT CT SCAN ORDER FOR PATIENT WAS NOT DONE DUE TO PATIENT'S AGITATION. HE SAID OK TO DO SCAN IN AM.
[2020-04-30] VITALS: BP 134/59
[2020-04-30 04:00] VITALS: BP 118/76
[2020-04-30 05:54] LABS: BASOPHILS % (AUTO) 0.4 % (0.0-2.0); EOSINOPHILS % (AUTO) 0.9 % (0.0-6.0); HEMATOCRIT 34 % (33-45); HEMOGLOBIN 11.4 g/dL (11.5-14.8); LYMPHOCYTES # (AUTO) 1.5 /CMM (0.8-4.8); LYMPHOCYTES % (AUTO) 22.5 % (20.0-44.0); MEAN CORPUSCULAR HGB CONC 33 g/dl (31.0-36.0); MEAN CORPUSCULAR VOLUME 87 fL (82-100); MONOCYTES # (AUTO) 0.6 /CMM (0.1-1.30); MONOCYTES % (AUTO) 9.3 % (2.0-12.0); NEUTROPHILS # (AUTO) 4.5 /CMM (1.8-8.9); NEUTROPHILS % (AUTO) 66.9 % (43.0-81.0); PLATELET COUNT (AUTO) 349 /CMM (150-450); RED BLOOD CELL COUNT(AUTO) 3.94 MIL/uL (4.0-5.2); WHITE BLOOD COUNT (AUTO) 6.7 K/uL (4.3-11.0)
[2020-04-30 06:08] LABS: CALCIUM, SERUM 8.3 mg/dL (8.5-10.1); CREATININE 0.6 mg/dL (0.6-1.3); MAGNESIUM 2.2 mg/dL (1.8-2.4); POTASSIUM 3.5 mmol/L (3.5-5.1)
--- NOTE | 2020-04-30 06:46 | NUR ---
RN NOTES PT SLEEPING COMFORTABLY, AROUSES EASILY. NO RESP DISTRESS NOTED. TOLERATING ROOM AIR. NO SUICIDAL IDEATION NOTED. REMAIN WITH SITTER. CONTINUE ON IVF D51/2 NS AT 70 ML/HR. NO SIGNS OF INFILTRATION NOTED. PT CONTINENT, ASSISTED TO BEDSIDE COMMODE. ALL SAFETY MEASURES MAINTAINED.
--- NOTE | 2020-04-30 07:45 | NUR ---
RN OPENING NOTE PATIENT IS CURRENTLY IN BED WITH SITTER AT BEDSIDE. PATIENT IS AOX2-3. PATIENT IS STABLE WITH NO SIGNS OF LABORED BREATHING. LEFT KNEE ABRASION IS NOTED. RFA #[id number] IS PATENT, INTACT, AND HAS NO SIGNS OF INFILTRATION. BED IS LOCKED IN THE LOWEST POSITION, 3 GUARD RAILS RAISED, AND ALL HOSPITAL SAFETY PRECAUTIONS ARE BEING FOLLOWED. WILL CONTINUE TO MONITOR THROUGHOUT SHIFT.
[2020-04-30 08:00] VITALS: BP 83/59
[2020-04-30] MEDS: MULTIVITAMINS,THERAGRAN 1 UDTAB TABLET PO SCH (08:45)
[2020-04-30] MEDS: OLANZAPINE 2.5 MG TABLET PO SCH (08:45)
[2020-04-30] MEDS: ASPIRIN EC 81 MG TABLET.DR PO SCH (08:45)
[2020-04-30] MEDS: DOCUSATE SODIUM 100 MG CAPSULE PO SCH ×2 (08:45→16:02)
[2020-04-30] MEDS ORDERED: FAMOTIDINE (20 MG) 20 MG TABLET PO SCH (09:00)
[2020-04-30 12:00] VITALS: BP 111/67
--- NOTE | 2020-04-30 14:30 | NUR ---
Cardroom Manager: This SW made APS report for possible self-neglect. APS report # [id number].
[2020-04-30 16:00] VITALS: BP 108/58
--- NOTE | 2020-04-30 19:18 | NUR ---
RN CLOSING NOTE PATIENT IS CURRENTLY IN BED WITH SITTER AT BEDSIDE. PATIENT IS AOX2-3. PATIENT IS STABLE WITH NO SIGNS OF LABORED BREATHING. LEFT KNEE ABRASION IS NOTED. . BED IS LOCKED IN THE LOWEST POSITION, 3 GUARD RAILS RAISED, AND ALL HOSPITAL SAFETY PRECAUTIONS ARE BEING FOLLOWED. PATIENT IS AWAITING AMBULANCE FOR DC. ALL DUE MEDS GIVEN DURING SHIFT AND PATIENT REMAINED STABLE THROUGHOUT SHIFT. ENDORSED TO RN NURSE MARQUES FOR LISANDRA.
--- NOTE | 2020-04-30 19:35 | NUR ---
RN NOTES CALLED [facility] TO F/U FOR THE GLUING MACHINE FEEDER OF PT. SPOKE WITH JON, ADVISED THAT AMBULANCE MOST PROBABLY ALREADY ON IT WAY. PANTOGRAPHER MADE AWARE. AWAITING FOR THE AMBULANCE TO GLUING MACHINE FEEDER THE PATIENT.
[2020-04-30] MEDS: LORAZEPAM INJ 2 MG/ML VIAL IV PRN (19:49)
--- NOTE | 2020-04-30 20:00 | NUR ---
BALL ROLLING MACHINE OPERATOR NOTES PATIENT DISCHARGE GOING TO [facility] WITH STABLE VITAL SIGNS, ALERT ORIENTED X2-3, NO ACUTE DISTRESS NOTED UPON DISCHARGE, BREATHING UNLABORED SATURATING AT >95% ON RA. DISCHARGE INSTRUCTIONS GIVEN INCLUDING HEALTH TEACHING REGARDING CONDITION AND SAFETY MEASURES & PRECAUTIONS AND INFECTION CONTROL AND MEDICATION LIST AND TEACHING. ALL BELONGINGS ACCOUNTED. IV ACCESS REMOVED INTACT, NO REDNESS, NO BLEEDING, NO SWELLING NOTED. PICKED UP VIA AMBULANCE IN A GURNEY ACCOMPANIED BY 2 EMT PERSONNEL IN STABLE CONDITION.
== END 2020-04-30 20:00 | DRG 422 ==
LOC: ER 18:11 → TELE1 23:09 → MEDSG1 04-30 10:09
PROVIDERS: ADMIT Internal Medicine; ATTEND Nurse Practitioner Family
DX: E86.0 Dehydration (principal); G92 Toxic encephalopathy; F29 Unspecified psychosis not due to a substance or known physiological condition; G24.01 Drug induced subacute dyskinesia; E78.5 Hyperlipidemia, unspecified; G20 Parkinson's disease; G25.5 Other chorea; I25.2 Old myocardial infarction; D68.69 Other thrombophilia; E11.9 Type 2 diabetes mellitus without complications; Z59.0 Homelessness; F25.9 Schizoaffective disorder, unspecified; F01.50 Vascular dementia, unspecified severity, without behavioral disturbance, psychotic disturbance, mood disturbance, and anxiety; Z20.822 Contact with and (suspected) exposure to COVID-19
CPT/HCPCS: 36415; 71045-TC; 80048-TC; 80053-TC; 80061-TC; 80076-TC; 81001; 82962-TC; 83735-TC; 84100-TC; 84443-TC; 84484-TC; 85025-TC; 87081-TC; 97112-TC; 97530-TC; C9803; G0378; G0480; J1200; J2060; J3490; J7030; U0003

== ENCOUNTER 2020-08-08 13:01 | Emergency (ER) | payer MEDICAID ==
[~2020-08-08] VITALS: Ht 162.6 cm; Wt 43.1 kg
[~2020-08-08 13:01] MED LIST changes: -HALO1TAB5 PO
--- NOTE | 2020-08-08 13:41 | NUR ---
MENDY FROM HOME TO ER BED 12. AAOX3. NOT IN RESP DISTRESS. AMBULATORY. CAME IN FOR L LEG PAIN S/P SLIP AND FALL. PT IS MOVING UNCONTROLABLY. PT'S ROM IS INTACT. AWAITING MD FOR EVAL.
--- NOTE | 2020-08-08 13:45 | NUR ---
DUE TO UNCONTROLLED AND INVOLUNTARY MOVEMENTS, UNABLE TO SHOOT XRAY. MADE AWARE. AWAITING FOR FURTHER ORDERS
[2020-08-08] MEDS ORDERED: BENZTROPINE MESYLATE (2MG/2ML) 2 MG/2 ML AMPUL ONE (14:08)
[2020-08-08] MEDS ORDERED: HYDROMORPHONE 1 MG/1 ML DISP.SYRIN ONE (14:09)
[2020-08-08] MEDS ORDERED: LORAZEPAM INJ 2 MG/ML VIAL ONE (14:09)
[2020-08-08] MEDS ORDERED: LORAZEPAM INJ 2 MG/ML VIAL IV ONE (14:30)
[2020-08-08] MEDS ORDERED: HYDROMORPHONE 1 MG/1 ML DISP.SYRIN IV ONE (14:30)
[2020-08-08] MEDS ORDERED: BENZTROPINE MESYLATE (2MG/2ML) 2 MG/2 ML AMPUL IM ONE (14:30)
[2020-08-08] MEDS ORDERED: BENZ2AMP3 PO (16:10)
--- NOTE | 2020-08-08 16:12 | NUR ---
SON CONTACTED FOR PT METAL WEATHER STRIPPER.
[2020-08-08 16:56] VITALS: BP 101/63
== END 2020-08-08 16:57 | disposition home or self-care (01) ==
LOC: ER 13:08
DX: M79.605 Pain in left leg (principal); G24.01 Drug induced subacute dyskinesia; K21.9 Gastro-esophageal reflux disease without esophagitis; F41.9 Anxiety disorder, unspecified; F20.9 Schizophrenia, unspecified; Z79.82 Long term (current) use of aspirin; W01.0XXA Fall on same level from slipping, tripping and stumbling without subsequent striking against object, initial encounter; Y93.89 Activity, other specified; Y92.89 Other specified places as the place of occurrence of the external cause; Y99.8 Other external cause status
CPT/HCPCS: 73552; 73564; 73590; 96372; 96374; 96375; 99284; J0515; J1170; J2060